=== PATIENT | female | born 1955 | race Two or more races ===

== ENCOUNTER 2022-12-20 09:41 | Emergency (ER) | payer MEDICARE, OTHER ==
[~2022-12-20] VITALS: Ht 160 cm; Wt 57.9 kg
[2022-12-20] MEDS ORDERED: GABA100C9 PO (11:31)
[2022-12-20] MEDS ORDERED: VALA1TAB PO (11:31)
[2022-12-20 11:45] VITALS: BP 157/78
== END 2022-12-20 11:51 | disposition home or self-care (01) ==
LOC: ER 09:41
DX: B02.9 Zoster without complications (principal); E11.9 Type 2 diabetes mellitus without complications